=== PATIENT | male | born 1945 | race Caucasian/White ===

== ENCOUNTER 2017-02-04 21:58 | Emergency (ER) | payer MEDICARE, OTHER ==
[~2017-02-04] VITALS: Ht 185.4 cm; Wt 72.6 kg
[2017-02-04 21:58] VITALS: BP 111/59
[~2017-02-04 21:58] MED LIST: CALCIUM CHLORIDE 1,000 MG/10 ML DISP.SYRIN IV ONE; EPINEPHRINE (1:10,000) SYRINGE 1 MG/10 ML DISP.SYRIN IVP ONE; FEE EMEERGENCY 1 MIN EA MC ONE; METO25TA6 PO; Sodium Bicarbonate 50 MEQ/50 ML VIAL IV ONE
[2017-02-04] MEDS ORDERED: ATROPINE SULFATE 1 MG/10 ML DISP.SYRIN ONE (22:08)
[2017-02-04] MEDS ORDERED: IV NS 0.9% 1,000 ML ONE (22:08)
[2017-02-04] MEDS ORDERED: IV SET PRIMARY 1 EA INFUS.SET MC ONE (22:08)
[2017-02-04] MEDS ORDERED: INSULIN REGULAR, HUMAN 100 UNIT/ML 10 ML VIAL ONE (22:09)
== END 2017-02-04 23:35 | disposition expired ==
LOC: ER 22:01
DX: I46.9 Cardiac arrest, cause unspecified (principal); H54.8 Legal blindness, as defined in USA; I12.9 Hypertensive chronic kidney disease with stage 1 through stage 4 chronic kidney disease, or unspecified chronic kidney disease; N19 Unspecified kidney failure; C64.9 Malignant neoplasm of unspecified kidney, except renal pelvis; Z90.5 Acquired absence of kidney
CPT/HCPCS: 82962; 92950; 99285; A4606; J0171; J0461; J1815; J3490; J7030; Z7610